=== PATIENT | female | born 1980 ===

== ENCOUNTER 2018-11-20 09:16 | Emergency (ER) | payer OTHER ==
--- NOTE | 2018-11-20 09:40 | UC ---
Respiratory Complaint HPI - HPI Summary HPI Summary: This is a year 38 old female with a chief complaint of sinus discomfort and drainage beginning 5 days ago. Last few days achey and temperature. COURSE: approximately 4 weeks of URI; cough better but sinuses hurt, draining and has muscle aches and subjective temperature for 5 days. Mild pain over maxillary and frontal sinuses. MD Note: Vital signs stable; temp 99.0; 138/90 not on medication. Nurses note: Cough, congestion x 3weeks, Thursday saw PCP and dx with viral infection, states that fever and muscle aches started yesterday. - History of Current Complaint Chief Complaint: UCRespiratory Stated Complaint: FLU SYMPTOMS Time Seen by Provider: 11/20/18 09:31 Hx Last Menstrual Period: 2 weeks ago Pain Intensity: 3 - Allergies/Home Medications Allergies/Adverse Reactions: Allergies Allergy/AdvReac Type Severity Reaction Status Date / Time No Known Allergies Allergy Verified 11/20/18 09:26 Home Medications: Home Medications Dextromethorphan Polistirex [Delsym] 30 mg PO Q12HR PRN 11/20/18 [History Confirmed 11/20/18] PMH/Surg Hx/FS Hx/Imm Hx - Additional Past Medical History Additional PMH: RELEVANT VISIT HISTORY: negative MEDICATIONS: no anti hypertensive medications CHRONIC CONDITIONS: none Family history significant for: -cardiovascular disease: hypertension SMOKING: neg ALCOHOL: rare 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 appendectoomy - Social History Alcohol Use: Rare Substance Use Type: None Smoking Status (MU): Never Smoked Tobacco Review of Systems All Other Systems Reviewed And Are Negative: Yes Constitutional: Positive: Fever - subjective, Fatigue, Other - myalgias. Negative: Chills Skin: Positive: Negative Eyes: Positive: Negative ENT: Positive: Negative Respiratory: Positive: Cough. Negative: Shortness Of Breath Cardiovascular: Positive: Negative Gastrointestinal: Positive: Negative Genitourinary: Positive: Negative Motor: Positive: Negative Neurovascular: Positive: Negative Musculoskeletal: Positive: Myalgia - upper shoulders Neurological: Positive: Negative Psychological: Positive: Negative Is Patient Immunocompromised?: No Physical Exam - Summary Physical Exam Summary: Appearance: The patient is well-appearing, is in no pain or distress, and is well-nourished. Eyes: Conjunctiva are clear. Pupils are equal and reactive to light and accommodation. Extraocular muscle movement is intact. ENT: The hearing is grossly normal, the pharynx is normal, and the TMs are normal. There is no muffled or hoarse voice. No stridor. Tender maxillary sinuses. Neck: The neck is supple and there is no lymphadenopathy. Respiratory: The chest is non-tender to palpation and without crepitus. The lungs are clear, there are normal breath sounds, and there is no respiratory distress. No wheezes, rales or rhonchi. Cardiovascular: Heart sounds reveal a regular rate and rhythm. There are no clicks, rubs or murmurs. There are no carotid bruits or thrills. Circulation is grossly intact. Abdomen: The abdomen is soft and non-tender. There is no organomegaly. Bowel sounds are present and within normal limits. No point tenderness at McBurneys point. Musculoskeletal: Strength is within normal limits for age. The patient moves all extremities spontaneously. Neurological: The patient is alert. Motor and sensory examination grossly intact. Speech is normal. Psychological: The patient displays age appropriate behavior. Oriented to person , place and time. Skin: Negative for rashes. Triage Information Reviewed: Yes Vital Signs: Initial Vital Signs Temp 99.7 F 11/20/18 09:27 Pulse 101 11/20/18 09:27 Resp 18 11/20/18 09:27 BP 138/90 11/20/18 09:27 Pulse Ox 98 11/20/18 09:27 Diagnostic Evaluation - Laboratory Pertinent Lab Values Are: WNL Except: - positive for influenza A O2 Sat by Pulse Oximetry: 98 Respiratory Course/Dx - Course Course Of Treatment: This is a year 38 old female with a chief complaint of sinus discomfort and drainage beginning 5 days ago. Last few days achey and temperature. Tender maxillary sinuses. Told to use moist heat to drain. Positive influenza A test. Will start Tamiflu. MEDICATIONS REVIEWED: Medications have been included in the original chart and reviewed. HYPERTENSION STATUS/MEDICATIONS REVIEWED and DISCUSSED WITH PATIENT. Patient is urgent/emergent. She states BP is usually low. She will recheck over the next few months. - Differential Dx/Diagnosis Differential Diagnosis/HQI/PQRI: Bronchitis, Influenza, Laryngitis, Lower Resp Infection, Sinusitis Provider Diagnosis: Influenza A Discharge - Sign-Out/Discharge Documenting (check all that apply): Patient Departure All imaging exams completed and their final reports reviewed: No Studies - Discharge Plan Condition: Stable Disposition: HOME Prescriptions: Oseltamivir CAP* [Tamiflu CAP*] 75 mg PO BID #10 cap MDD 2 Referrals: No Primary Care Phys,NOPCP [Primary Care Provider] - Additional Instructions: WE DISCUSSED: PLEASE SEEK CARE AT THE EMERGENCY DEPARTMENT IF SYMPTOMS WORSEN OR IF NEW SYMPTOMS DEVELOP. FOLLOW UP WITH YOUR PRIMARY CARE PHYSICIAN IF CONDITION CONTINUES BEYOND 3 DAYS WITHOUT IMPROVEMENT. YOUR DIAGNOSIS IS: INFLUENZA A YOUR PRESCRIPTION RECOMMENDATION IS: TAMIFLU, twice a day for five days OTHER INSTRUCTIONS: IF SINUSES GET WORSE (pain, elevated temperature in 5 days ) re-check/ USEFUL WAYS TO FEEL BETTER WITHOUT MEDICATIONS: STAND UNDER SHOWER STREAM TO LOOSEN SECRETIONS. USE A VAPORIZOR. STAY AWAY FROM ANY SMOKE OR IRRITANTS. USE SALINE NASAL SPRAY TO KEEP FLOW OF MUCOUS FROM NOSTRILS AND SINUSES. CONSIDER USING NETI POT TO HELP WITH ALLERGIES AND CONGESTION IN THE NOSE. USE THIS THREE TIMES A WEEK. YOU CAN GET THIS AT [facility] IN [place] OR [facility]. DRINK LOTS OF WARM FLUIDS USEFUL HOME REMEDIES: WARM WATER GARGLES, WITH TSP OF SALT PER 8 OUNCES OF WATER, GARGLE FOR A FEW SECONDS AND SPIT OUT; GARGLE AND SPIT OUT; EVERY THREE HOURS. AND/OR: WARM WATER OR TEA, HONEY AND LEMON; 2-3 CUPS A DAY. FOR SORE THROAT: KEEP THROAT MOIST WITH LOZENGES; TEA AND HONEY. USE WARM WATER GARGLES 3-4 TIMES A DAY. FOLLOW UP: RE-CHECK IN 1O DAYS, NEEDED, IF YOU ARE NOT IMPROVING. RETURN HERE OR SEE YOUR PHYSICIAN. RE-CHECK SOONER IF INCREASED PAIN OR TEMPERATURE. - Billing Disposition and Condition Condition: STABLE Disposition: Home
[2018-11-20 09:50] LABS: Influenza A Molecular POSITIVE (Negative)
== END 2018-11-20 10:10 | disposition home or self-care (01) ==
LOC: UCEAST 09:16
DX: J10.1 Influenza due to other identified influenza virus with other respiratory manifestations (principal)
CPT/HCPCS: 99202; G0463